=== PATIENT | female | born 1970 | race Caucasian/White ===

== ENCOUNTER → 2021-04-09 | Outpatient (CLI) | payer BC | LOC: EXRD 07:50 | DX: M25.561 Pain in right knee (principal) | CPT/HCPCS: 73564 ==

== ENCOUNTER → 2021-04-16 | Outpatient (CLI) | payer BC | LOC: LAB 12:19 | DX: R42 Dizziness and giddiness (principal); M54.5 Low back pain; R06.02 Shortness of breath; M41.9 Scoliosis, unspecified; M51.14 Intervertebral disc disorders with radiculopathy, thoracic region; M51.84 Other intervertebral disc disorders, thoracic region; M46.04 Spinal enthesopathy, thoracic region; M48.04 Spinal stenosis, thoracic region | CPT/HCPCS: 36415; 71046; 72072; 72110; 81001; 85379; 87086 ==

== ENCOUNTER → 2021-06-03 | Outpatient (CLI) | payer BC | LOC: HEART 5 10:49 | DX: R06.02 Shortness of breath (principal); R94.31 Abnormal electrocardiogram [ECG] [EKG] ==

== ENCOUNTER → 2022-01-03 | Outpatient (CLI) | payer BC ==
[2022-01-03 08:26] LABS: HEMOGLOBIN 13.8 gm/dl (12.3-15.3); RED BLOOD COUNT 4.62 M/UL (4.00-5.10); WHITE BLOOD COUNT 5.3 K/UL (4.5-11.0)
[2022-01-03 08:58] LABS: BUN/CREATININE RATIO 18 (0-10)
== END ==
LOC: LAB 08:07
PROVIDERS: Family Medicine
DX: Z13.220 Encounter for screening for lipoid disorders (principal); G43.909 Migraine, unspecified, not intractable, without status migrainosus; R25.2 Cramp and spasm
CPT/HCPCS: 36415; 80053; 80061; 83735; 85027

== ENCOUNTER → 2022-03-18 | Outpatient (CLI) | payer BC ==
[~2022-03-18] MED LIST: COLLAGEN; CYCLOBENZAPRINE5 MG PO; DAILY VALUE1 EACH PO; HAIR SKIN NAIL1 EACH PO; NURTEC ODT75 MG PO; PREBIOTIC; VITAMIN B12
== END ==
LOC: EXRD 08:06
DX: M79.632 Pain in left forearm (principal)
CPT/HCPCS: 73110

== ENCOUNTER → 2022-03-19 | Outpatient (CLI) | payer BC ==
[~2022-03-19] MED LIST changes: -COLLAGEN; +COLLAGEN PO; -PREBIOTIC; +PROBIOTIC PO; -VITAMIN B12; +VITAMIN B12 PO
== END ==
LOC: EXRD 08:01
DX: R93.7 Abnormal findings on diagnostic imaging of other parts of musculoskeletal system (principal)
CPT/HCPCS: 73090

== ENCOUNTER → 2022-03-21 | Day surgery (SDC) | payer BC | END | disposition home or self-care (01) | LOC: OR 07:54 | DX: K59.00 Constipation, unspecified (principal); D12.5 Benign neoplasm of sigmoid colon; Z80.0 Family history of malignant neoplasm of digestive organs; Z83.71 Family history of colonic polyps; Z88.5 Allergy status to narcotic agent | CPT/HCPCS: J2704; J3010 ==

== ENCOUNTER → 2022-04-02 | Outpatient (CLI) | payer BC | LOC: EXRD 11:22 | DX: Z13.820 Encounter for screening for osteoporosis (principal); Z78.0 Asymptomatic menopausal state; M85.852 Other specified disorders of bone density and structure, left thigh | CPT/HCPCS: 77080 ==